=== PATIENT | female | born 1960 | race African-American/Black ===

== ENCOUNTER 2021-01-28 07:44 | Emergency (ER) | payer MEDICAID, OTHER ==
[~2021-01-28] VITALS: Ht 165.1 cm; Wt 109.1 kg
--- NOTE | 2021-01-28 08:54 | ED.ADGEN ---
Past Medical History Past Medical History: No Pertinent History Past Surgical History: Other Additional Past Surgical Histo: RIGHT THUMB Smoking Status: Current Every Day Smoker Alcohol Use: None General Adult EDM: Chief Complaint: GI PROBLEM HPI: HPI: Patient is a 60 year old female coming in for 1 week of abdominal pain is started radiating to her chest. Patient states she feels bloated and has been belching. Has not seen her primary care provider. Patient states she vomited 1 time 6 days ago. Is been having normal daily bowel movements without straining. No fevers or cough. No history of abdominal surgeries. Review of Systems: Review of Systems: All other systems within normal limits except for as noted in the HPI Current Medications: Current Medications Medications (Trade) Dose Ordered Sig/Loc Start Time Stop Time Status Last Admin Dose Admin Info (CONTRAST GIVEN -- Rx MONITORING) 1 each PRN DAILY PRN 01/28/21 09:45 01/30/21 09:44 Iohexol (Omnipaque 300 Mg/ml) 75 ml 1X ONCE 01/28/21 10:00 01/28/21 10:01 DC 01/28/21 09:51 75 ML Ondansetron HCl (Zofran) 4 mg 1X ONCE 01/28/21 09:30 01/28/21 09:31 DC Simethicone/ Sodium Bicarb/ Citric Ac (E-Z-Gas) 1 packet 1X ONCE 01/28/21 11:30 01/28/21 11:31 Allergies: Allergies: Allergies Coded Allergies Type Severity Reaction Last Updated Verified Penicillins Allergy Severe Swelling 01/28/21 Yes Physical Exam: PE: Constitutional: Well developed, well nourished, no acute distress, non-toxic appearance. [] HENT: Normocephalic, atraumatic, bilateral external ears normal, nose normal. [] Eyes: PERRLA, conjunctiva normal, no discharge. [] Neck: No rigidity, supple, no stridor. [] Cardiovascular: Regular rate and rhythm, brisk cap refill [] Lungs & Thorax: Non labored symmetric respirations, no tachypnea or respiratory distress [] Abdomen: Soft, nondistended, no focal tenderness guarding or rebound, negative Moreno sign. Skin: Warm, dry, no erythema, no rash. [] Back: Unremarkable Extremities: No deformities, range of motion grossly intact, no lower extremity edema [] Neurologic: Alert and oriented X 3, no focal deficits noted. [] Psychologic: Affect normal, judgement normal, mood normal. [] Current Patient Data: Labs: Laboratory Tests Test 01/28/21 08:05 01/28/21 08:14 01/28/21 09:00 Urine Collection Type Unknown Urine Color Yellow Urine Clarity Clear Urine pH 6.0 (<5.0-8.0) Urine Specific Orick <=1.005 (1.000-1.030) Urine Protein Negative mg/dL (NEG-TRACE) Urine Glucose (UA) 100 mg/dL (NEG) Urine Ketones (Stick) Negative mg/dL (NEG) Urine Blood Small (NEG) Urine Nitrite Negative (NEG) Urine Bilirubin Negative (NEG) Urine Urobilinogen Dipstick 0.2 mg/dL (0.2 mg/dL) Urine Leukocyte Esterase Negative (NEG) Urine RBC 1-2 /HPF (0-2) Urine WBC Occ /HPF (0-4) Urine Squamous Epithelial Cells Few /LPF Urine Bacteria 0 /HPF (0-FEW) POC Urine HCG, Qualitative Hcg negative (Negative) White Blood Count 7.8 x10^3/uL (4.0-11.0) Red Blood Count 5.31 x10^6/uL (3.50-5.40) Hemoglobin 13.7 g/dL (12.0-15.5) Hematocrit 40.6 % (36.0-47.0) Mean Corpuscular Volume 77 fL (79-100) L Mean Corpuscular Hemoglobin 26 pg (25-35) Mean Corpuscular Hemoglobin Concent 34 g/dL (31-37) Red Cell Distribution Width 15.9 % (11.5-14.5) H Platelet Count 287 x10^3/uL (140-400) Neutrophils (%) (Auto) 58 % (31-73) Lymphocytes (%) (Auto) 30 % (24-48) Monocytes (%) (Auto) 10 % (0-9) H Eosinophils (%) (Auto) 2 % (0-3) Basophils (%) (Auto) 1 % (0-3) Neutrophils # (Auto) 4.5 x10^3/uL (1.8-7.7) Lymphocytes # (Auto) 2.3 x10^3/uL (1.0-4.8) Monocytes # (Auto) 0.8 x10^3/uL (0.0-1.1) Eosinophils # (Auto) 0.2 x10^3/uL (0.0-0.7) Basophils # (Auto) 0.1 x10^3/uL (0.0-0.2) Sodium Level 142 mmol/L (136-145) Potassium Level 3.7 mmol/L (3.5-5.1) Chloride Level 106 mmol/L (98-107) Carbon Dioxide Level 26 mmol/L (21-32) Anion Gap 10 (6-14) Blood Urea Nitrogen 8 mg/dL (7-20) Creatinine 0.8 mg/dL (0.6-1.0) Estimated GFR (Cockcroft-Gault) 88.8 BUN/Creatinine Ratio 10 (6-20) Glucose Level 100 mg/dL (70-99) H Calcium Level 9.3 mg/dL (8.5-10.1) Total Bilirubin 0.4 mg/dL (0.2-1.0) Aspartate Amino Transferase (AST) 18 U/L (15-37) Alanine Aminotransferase (ALT) 27 U/L (14-59) Alkaline Phosphatase 86 U/L (46-116) Troponin I Quantitative < 0.017 ng/mL (0.000-0.055) Total Protein 8.3 g/dL (6.4-8.2) H Albumin 3.9 g/dL (3.4-5.0) Albumin/Globulin Ratio 0.9 (1.0-1.7) L Lipase 36 U/L (73-393) L Laboratory Tests 01/28/21 09:00 Laboratory Tests 01/28/21 09:00 Vital Signs: Vital Signs Date Time Temp Pulse Resp B/P (MAP) Pulse Ox O2 Delivery O2 Flow Rate FiO2 01/28/21 07:52 97.9 75 16 156/90 (112) 97 Room Air 97.9 EKG: EKG: [] Heart Score: C/O Chest Pain: No Risk Factors: Risk Factors: DM, Current or recent (<one month) smoker, HTN, HLP, family history of CAD, obesity. Risk Scores: Score 0 - 3: 2.5% MACE over next 6 weeks - Discharge Home Score 4 - 6: 20.3% MACE over next 6 weeks - Admit for Clinical Observation Score 7 - 10: 72.7% MACE over next 6 weeks - Early Invasive Strategies Radiology/Procedures: Radiology/Procedures: [facility] [address] [place] [address] IMAGING REPORT Signed PATIENT: GERARDO LOGAN LACCOUNT: [id number] : 1960 LOCATION: ER AGE: 60 SEX: F EXAM STATUS: REG ER ORD. PHYSICIAN: TONY PERALTA MD REASON: chest and upper abd pain PROCEDURE: CT CHEST ABD PELVIS W/CONTRAST Site ID: [id number] EXAMINATION: CT CHEST+ABD+PELVIS W. Technique: Axial images with coronal and sagittal reconstructions are performed of chest, abdomen and pelvis with intravenous contrast. 75 mL of Omnipaque 300 was administered intravenously. One or more of the following radiation dose reduction techniques was used: automated exposure control, adjustment of mA and/or KV according to patient size, and/or utilization of iterative reconstruction technique. HISTORY: 60 years Female chest and upper abdominal pain. . COMPARISON: None. FINDINGS: CT chest: The thoracic aorta is normal in caliber. There is no dissection. There is a only mild opacification of the pulmonary arteries with no obvious abnormality. The heart size is normal. No pericardial effusion. There is no pleural effusion. No significant the lymphadenopathy is noted in the mediastinum or baudilio. No axillary lymphadenopathy is seen. The lungs demonstrate upper lobe the emphysema changes. There is a calcified granuloma measuring 4 mm seen in the right middle lobe, otherwise no suspicious pulmonary nodule or mass is seen. Mild degenerative changes in the thoracic spine seen. CT abdomen and pelvis: The liver, gallbladder, spleen, pancreas, and the the adrenal glands appear unremarkable. The kidneys have symmetric enhancement. There is no hydronephrosis. The the abdominal aorta is normal in caliber. No para-aortic significantly enlarged lymph nodes are seen. The urinary bladder appear unremarkable. The uterus and adnexa appear grossly unremarkable. There is a no free fluid or fluid collection in the abdomen or pelvis seen. There is no bowel obstruction. The appendix is normal. The osseous structures demonstrate the degenerative disc changes in the mid and lower lumbar spine levels. IMPRESSION: CT chest: Emphysema. CT abdomen and pelvis: Unremarkable exam. Electronically signed by: Lizette Kahn MD (01/28/2021 10:57 AM) [id number] DICTATED and SIGNED BY: LIZETTE KAHN MD DATE: 01/28/21 [id number] [] Course & Med Decision Making: Course & Med Decision Making Pertinent Labs and Imaging studies reviewed. (See chart for details) [] Dragon Disclaimer: Dragon Disclaimer: This electronic medical record was generated, in whole or in part, using a voice recognition dictation system. Departure Departure Impression: Primary Impression: Abdominal pain Disposition: HOME / SELF CARE / HOMELESS Condition: STABLE Referrals: TODD LEONG MD (PCP) Patient Instructions: Abdominal Pain (Nonspecific) Scripts Simethicone (SIMETHICONE) 80 Mg Tab.chew 1 TAB PO TID for gas for 6 Days, #20 TAB 0 Refills Prov: TONY PERALTA MD 01/28/21 Famotidine (FAMOTIDINE) 40 Mg Tablet 40 MG PO HS for antacid for 30 Days, #30 TAB Prov: TONY PERALTA MD 01/28/21 TONY PERALTA MD Jan 28, 2021 08:54
[2021-01-28 09:08] LABS: BASO # 0.1 x10^3/uL (0.0-0.2); BASO % 1 % (0-3); EOS # 0.2 x10^3/uL (0.0-0.7); EOS % 2 % (0-3); HEMATOCRIT 40.6 % (36.0-47.0); HEMOGLOBIN 13.7 g/dL (12.0-15.5); LYMPH # 2.3 x10^3/uL (1.0-4.8); LYMPH % 30 % (24-48); MEAN CORPUSCULAR HEMOGLOBIN 26 pg (25-35); MEAN CORPUSCULAR HGB CONC 34 g/dL (31-37); MEAN CORPUSCULAR VOLUME 77 fL (79-100); MONO # 0.8 x10^3/uL (0.0-1.1); MONO % 10 % (0-9); NEUT # 4.5 x10^3/uL (1.8-7.7); NEUT % 58 % (31-73); PLATELET COUNT 287 x10^3/uL (140-400); RED BLOOD COUNT 5.31 x10^6/uL (3.50-5.40); RED CELL DISTRIBUTION WIDTH 15.9 % (11.5-14.5); WHITE BLOOD COUNT 7.8 x10^3/uL (4.0-11.0)
[2021-01-28 09:19] LABS: CALCIUM 9.3 mg/dL (8.5-10.1); CREATININE 0.8 mg/dL (0.6-1.0); GFR 88.8; POTASSIUM 3.7 mmol/L (3.5-5.1)
[2021-01-28 09:25] LABS: ALBUMIN 3.9 g/dL (3.4-5.0); ALBUMIN/GLOBULIN RATIO 0.9 (1.0-1.7); TOTAL BILIRUBIN 0.4 mg/dL (0.2-1.0); TOTAL PROTEIN 8.3 g/dL (6.4-8.2)
[2021-01-28 09:25] LABS: BILIRUBIN,URINE NEGATIVE (NEG); CLARITY,URINE CLEAR; COLOR,URINE YELLOW; NITRITE,URINE NEGATIVE (NEG); PROTEIN,URINE NEGATIVE (NEG-TRACE); UROBILINOGEN,URINE 0.2 mg/dL (0.2 mg/dL)
[2021-01-28] MEDS ORDERED: ONDANSETRON PF 4 MG/2 ML VIAL. IVP ONE (09:30)
[2021-01-28 09:37] LABS: BACTERIA,URINE 0 /HPF (0-FEW); WBC,URINE OCC /HPF (0-4)
[2021-01-28] MEDS ORDERED: CONTRAST GIVEN. MC PRN (09:45)
[2021-01-28] MEDS ORDERED: IOHEXOL 300 MG/ML 100ML VIAL. IV ONE (10:00)
--- NOTE | 2021-01-28 11:00 | RAD ---
Site ID: [id number] EXAMINATION: CT CHEST+ABD+PELVIS W. Technique: Axial images with coronal and sagittal reconstructions are performed of chest, abdomen and pelvis with intravenous contrast. 75 mL of Omnipaque 300 was administered intravenously. One or more of the following radiation dose reduction techniques was used: automated exposure control , adjustment of mA and/or KV according to patient size, and/or utilization of iterative reconstructio n technique. HISTORY: 60 years Female chest and upper abdominal pain. . COMPARISON: None. FINDINGS: CT chest: The thoracic aorta is normal in caliber. There is no dissection. There is a only mild opacification o f the pulmonary arteries with no obvious abnormality. The heart size is normal. No pericardial effusi on. There is no pleural effusion. No significant the lymphadenopathy is noted in the mediastinum or baudilio. No axillary lymphadenopathy i s seen. The lungs demonstrate upper lobe the emphysema changes. There is a calcified granuloma measur ing 4 mm seen in the right middle lobe, otherwise no suspicious pulmonary nodule or mass is seen. Mild degenerative changes in the thoracic spine seen. CT abdomen and pelvis: The liver, gallbladder, spleen, pancreas, and the the adrenal glands appear unremarkable. The kidneys have symmetric enhancement. There is no hydronephrosis. The the abdominal aorta is normal in caliber. No para-aortic significantly enlarged lymph nodes are s een. The urinary bladder appear unremarkable. The uterus and adnexa appear grossly unremarkable. There is a no free fluid or fluid collection in the abdomen or pelvis seen. There is no bowel obstruction. The appendix is normal. The osseous structures demonstrate the degenerative disc changes in the mid and lower lumbar spine le vels. IMPRESSION: CT chest: Emphysema. CT abdomen and pelvis: Unremarkable exam. Electronically signed by: Luigi Kahn MD (01/28/2021 10:57 AM) [id number]
[2021-01-28] MEDS ORDERED: SIME80TA14 PO (11:17)
[2021-01-28] MEDS ORDERED: FAMO40TA4 PO (11:17)
[2021-01-28 11:24] VITALS: BP 186/86
[2021-01-28] MEDS ORDERED: SIMETHICONE/SOD BICARB/CITRIC ACID PACKET. PO ONE (11:30)
== END 2021-01-28 11:46 | disposition home or self-care (01) ==
LOC: ER 07:44
DX: R10.10 Upper abdominal pain, unspecified (principal); R14.0 Abdominal distension (gaseous); F17.200 Nicotine dependence, unspecified, uncomplicated; Z88.0 Allergy status to penicillin
CPT/HCPCS: 36415; 71260; 74177; 80053; 81001; 81025; 83690; 84484; 85025; 99285; Q9967